=== PATIENT | female | born 1975 | race Caucasian/White ===

== ENCOUNTER 2021-07-19 07:18 | Day surgery (SDC) | payer OTHER ==
[~2021-07-19] VITALS: Ht 165.1 cm; Wt 57.0 kg
[2021-07-19] VITALS (9 sets, daily range): BP systolic 92–149; BP diastolic 60–91
--- NOTE | 2021-07-19 07:30 | NUR ---
PATIENT TO ROOM AMBULATORY. ADMISSION ASSESSMENT COMPLETED AT THIS TIME. CONSENT OBTAINED. IV ESTABLISHED. LABS SENT FOR REFERENCE. ORIENTED PATIENT TO ROOM AND UNIT. CALL LIGHT IN REACH. WILL CONTINUE TO MONITOR.
[2021-07-19 09:07] LABS: HEMATOCRIT 33.4 % (37.0-47.0); HEMOGLOBIN 10.8 g/dl (12.0-16.0); MEAN CELL VOLUME 91.3 fL CALC (80.0-100.0); MEAN CORPUSCULAR HGB 29.5 pG CALC (26.0-32.0); MEAN CORPUSCULAR HGB CONC 32.3 g/dL CAL (32.0-36.0); NEUT# 2.73 thou/uL (2.00-7.15); RED BLOOD COUNT 3.66 mill/uL (4.20-5.60); RED CELL DISTRI WIDTH 12.2 % (11.5-15.5)
[2021-07-19 09:22] LABS: ALBUMIN 3.9 g/dL (3.2-5.0); ALKALINE PHOSPHATASE 105 u/l (38-126); ANION GAP 7 (6-22 (CALC)); BILIRUBIN, TOTAL 0.5 mg/dL (0.0-1.4); BUN 14 mg/dL (7-17); BUN/CREATININE RATIO 20 (12-20 (CALC)); CARBON DIOXIDE 34 mmol/l (22-30); CHLORIDE 103 mmol/l (95-108); CREATININE 0.7 mg/dL (0.5-1.0); GFR > 60 ML/MIN (>=60 (CALC)); GFR FOR AFR.AMER. > 60 ML/MIN (>=60 (CALC)); POTASSIUM 3.9 mmol/l (3.5-5.1); SGOT/AST 40 u/l (14-36); SODIUM 140 mmol/l (137-146); TOTAL PROTEIN 7.6 g/dL (6.3-8.2)
--- NOTE | 2021-07-19 11:15 | NUR ---
PATIENT TO ANR PROCEDURE VIA BED.
[2021-07-19] MEDS ORDERED: NALTREXONE50 MG PO (13:35)
[2021-07-19] MEDS ORDERED: CLONIDINE0.1 MG PO (13:36)
[2021-07-19] MEDS ORDERED: KLONOPIN0.5 MG PO (13:36)
--- NOTE | 2021-07-19 17:00 | NUR ---
PT ARRIVED ON FLOOR TO ROOM 289 VIA STRETCHER. PT NOTED TO HAS SOME SWEATING ON HER FACE. PT DOES NOT RESPOND VERBALLY TO VERBAL STIMULI AT THIS TIME, GRUNTS. PT NOTED TO HAVE SOME RESTLESSNESS GOING ON, WILL MONITOR FOR POTENTIAL PRN MEDIACATION.
--- NOTE | 2021-07-19 18:00 | NUR ---
PT VERY RESTLESS, RISK FOR LOSING SECONDARY IV IN RIGHT ANKLE. MEDICATED PT WITH ATIVAN 2MG IV. WILL MONITOR
--- NOTE | 2021-07-19 19:00 | NUR ---
REPORT RECEIVED FROM DAYSHIFT NURSE VIA SBAR FORMAT. FOUND PATIENT IN BED, ROLLING BACK IN FORT, NOT LYING STILL, IV SITE IS ON RT ANKLE, 18G. RESP ARE EVEN AND UNLABORED, DROWSY, CONFUSED, NOT FULLY ALERT, NOT ABLE TO ANSWER ANY QUESTIONS. 2MG OF ATIVAN IV ADMINISTERED AT 1800 PER NURSE REPORT.
--- NOTE | 2021-07-19 22:10 | NUR ---
MEDICATED WITH PHENERGAN IV PER EMAR ORDERS; PATIENT IS RESTLESS, NAUSEATED, NO EMESIS NOTED, DOES NOT STAY STILL, FREQUENTLY ATTEMPTING TO GET UP, CONTINUALLY MOVING IN BED, KICKING. WILL FOLLOW UP CLOSELY; BED ALARM ON.
--- NOTE | 2021-07-19 23:57 | NUR ---
MEDICATED WITH ATIVAN IV PER EMAR ORDERS FOR AGITATION, RESTLESS, AND ANXIETY. WILL FOLLOW UP WITH REASSESSMENT. BED ALARM ON. SITTER AT BEDSIDE.
--- NOTE | 2021-07-20 00:48 | NUR ---
PATIENT IS RESTING IN BED, RESTLESSNESS, OPENS EYES, DOES NOT FOLLOW COMMANDS, OR MAKES EYE CONTACT, CONFUSED, DROWSY, LETHARGIC FROM MEDICATION PER EMAR ORDERS. PATIENT AT RISK OF IV SITE DISLODGEMENT.
[2021-07-20 02:30] VITALS: BP 154/86
[2021-07-20 03:51] VITALS: BP 148/89
--- NOTE | 2021-07-20 04:00 | NUR ---
MEDICATED PER EMAR ORDERS, SWALLOW PO MEDS WITHOUT S/S OF ASPIRATIONS, DROWSY, MORE CALM, SITTER AT BEDSIDE, RESP ARE EVEN AND UNLABORED, FLUIDS INFUSING TO R ANKLE PATENT IV SITE. SAFETY MEASURES IN PLACE, WILL FOLLOW UP CLOSELY.
[2021-07-20 05:51] LABS: MEAN CELL VOLUME 95.8 fL CALC (80.0-100.0); MEAN CORPUSCULAR HGB 29.5 pG CALC (26.0-32.0); MEAN CORPUSCULAR HGB CONC 30.8 g/dL CAL (32.0-36.0); RED BLOOD COUNT 4.98 mill/uL (4.20-5.60); RED CELL DISTRI WIDTH 12.1 % (11.5-15.5)
[2021-07-20 05:52] LABS: HEMATOCRIT 47.7 % (37.0-47.0); HEMOGLOBIN 14.7 g/dl (12.0-16.0)
[2021-07-20 06:31] LABS: ALBUMIN 4.3 g/dL (3.2-5.0); ALKALINE PHOSPHATASE 119 u/l (38-126); ANION GAP 14 (6-22 (CALC)); BILIRUBIN, TOTAL 0.6 mg/dL (0.0-1.4); BUN 15 mg/dL (7-17); BUN/CREATININE RATIO 26 (12-20 (CALC)); CHLORIDE 107 mmol/l (95-108); CREATININE 0.6 mg/dL (0.5-1.0); GFR > 60 ML/MIN (>=60 (CALC)); GFR FOR AFR.AMER. > 60 ML/MIN (>=60 (CALC)); MAGNESIUM 2.1 mg/dL (1.6-2.3); POTASSIUM 3.9 mmol/l (3.5-5.1); SGOT/AST 38 u/l (14-36); SODIUM 140 mmol/l (137-146)
[2021-07-20 06:32] LABS: CARBON DIOXIDE 23 mmol/l (22-30)
[2021-07-20 07:05] VITALS: BP 143/88
[2021-07-20 07:13] VITALS: BP 128/75
--- NOTE | 2021-07-20 08:00 | NUR ---
REPORT RECEIVED FROM DICKSON BISWAS. VSS, PT IS RESTLESS, BUT ALERT. DROWSY FROM PROCEDURE. PT ABLE TO TAKE PO MEDICATIONS. DENIES N/V. CALL LIGHT WITHIN REACH. SITTER AT BS. WILL CONTINUE TO MONITOR SAFETY.
--- NOTE | 2021-07-20 12:00 | NUR ---
PT IS GROGGY BUT PERSUADED TO TAKE SHOWER, ONCE IN SHOWER PT THROWS SHOWER WAND AND CURSES STATING "IT IS TOO COLD." PT SAFELY ASSISTED TO THE CHAIR AND GIVEN A WARM BLANKET. GIVEN TIME TO WARM UP AND ASSISTED WITH PUTTING ON CLOTHING. PT INSTRUCTED NOT TO GET OOB, SITTER AT DOORWAY. WILL CONTINUE TO MONITOR.
--- NOTE | 2021-07-20 15:16 | NUR ---
PT DISCHARGED AT THIS TIME IN STABLE CONDITION VIA WHEELCHAIR. PRESCRIPTIONS CALLED TO [facility]. DISCHARGE DISCUSSED WITH FAMILY
== END 2021-07-20 15:05 | disposition home or self-care (01) | DRG 897 ==
LOC: ANR 07:18 → MS2 07:24 → ANR 07-20 15:05
PROVIDERS: ATTEND Anesthesiology
DX: F11.20 Opioid dependence, uncomplicated (principal)
CPT/HCPCS: J2060; J2354